=== PATIENT | female | born 1990 | race Caucasian/White ===

== ENCOUNTER 2018-01-15 20:50 | Inpatient (IN) ==
[2018-01-15] MEDS ORDERED: Sod Chloride 0.9% Inj 1,000 ML IV.CONT PRN (22:09)
[2018-01-15] MEDS ORDERED: Oxytocin 30 Units/500ml Premix 30 UNITS/500 ML BAG IV.SIG ONE (22:09)
[2018-01-15] MEDS ORDERED: fentaNYL Citrate Inj 100 MCG/2 ML Ampul IV.PUSH PRN ×2 (22:09)
[2018-01-15] MEDS ORDERED: Sodium Chlor 0.9% Inj 500 ML IV.SIG PRN (22:09)
[2018-01-15 22:12] LABS: Baso # (Auto) 0.1 th/mm3 (0.0-0.2); Baso % (Auto) 0.4 % (0.0-2.0); Eos % (Auto) 0.4 % (0.0-4.0); Hematocrit 37.7 % (35.0-46.0); Hemoglobin 12.8 gm/dL (11.6-15.3); Lymph # (Auto) 1.8 th/mm3 (1.0-4.8); Lymph % (Auto) 13.1 % (9.0-44.0); Mean Corpuscular Hemoglobin 28.4 pg (27.0-34.0); Mean Corpuscular Volume 83.3 fL (80.0-100.0); Mono # (Auto) 0.9 th/mm3 (0.0-0.9); Mono % (Auto) 6.7 % (0.0-8.0); Neut # (Auto) 10.8 th/mm3 (1.8-7.7); Neut % (Auto) 79.4 % (16.0-70.0); Platelet Count 204 th/mm3 (150-450); Red Blood Count 4.52 mil/mm3 (4.00-5.30); Red Cell Distribution Width 13.5 % (11.6-17.2); White Blood Count 13.6 th/mm3 (4.0-11.0)
[2018-01-15] MEDS ORDERED: Citric Acid/Sodium Citrate Liq 30 ML UDC PO SCH (22:15)
--- NOTE | 2018-01-15 22:18 | ED ---
History of Present Illness Primary Care Physician: No Primary Care Physician Chief Complaint: Contractions History of Present Illness: 27 year-old , IUP at 39.5 care complicated by anxiety The patient presents complaining of the onset of painful contractions after being discharged from here this morning. She reports that at 1 PM she was feeling painful contractions about every 10 minutes. She reports that they have subsequently increased in intensity and frequency to every 7-10 minutes and now every 5-7 minutes. There have been no alleviating factors or attempted treatments. She reports associated back pain. She denies any leaking of fluid or vaginal bleeding. 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 This includes certification that hospital inpatient services are reasonable and necessary and in the case of services not specified as inpatient-only under 42 CFR 419.22(n), that they are appropriately provided as inpatient services in accordance to with the 2-midnight benchmark under 43 CFR 412.3(e) Estimated Total Length of Stay (Days): 2 Plans for Post Hospital Care: Home Review of Systems All other systems reviewed negative except as stated in HPI [facility] - History History Provided By: Patient - Medical History Medical History: Medical History (Last Updated 10/26/17 @ 15:11 by Bettina Vines) Endometriosis - Surgical History Surgical History: Surgical History (Last Updated 10/26/17 @ 15:11 by Bettina Vines) H/O laparoscopy - Tobacco History Smoking Status: Never smoker - Alcohol History How Often Do You Have a Drink Containing Alcohol: Never (Not during ) - Substance Use History Substance History: No History of Abuse - Travel History History of Recent Travel: No Medications and Allergies Active Medications: Active Medications Citric Acid/Sodium Citrate (Sodium Citrate/Citric Acid Liq) 30 ml PO [facility] Stop: 01/19/18 22:14 Fentanyl Citrate (Fentanyl Inj) 50 mcg IV.PUSH Q1H PRN PRN Reason: Pain Scale 3 - 5 Fentanyl Citrate (Fentanyl Inj) 100 mcg IV.PUSH Q1H PRN PRN Reason: PAIN SCALE 6 TO 10 Lactated Ringer's (Lr 1000 Ml Inj) 1,000 mls @ 3,000 mls/hr IV.SIG UNSCH PRN PRN Reason: compromise or epidural Sodium Chloride (Ns Inj) 500 mls @ 1,000 mls/hr IV.SIG UNSCH PRN PRN Reason: SEE LABEL COMMENTS Sodium Chloride (Ns Inj) 1,000 mls @ 100 mls/hr IV.CONT .Q10H PRN PRN Reason: SEE LABEL COMMENTS Oxytocin (Pitocin 30 Units/Ns 500 Ml Premix) 30 units in 500 mls @ 999 mls/hr IV.SIG BOLUS ONE Stop: 01/15/18 22:39 Lactated Ringer's (Lr 1000 Ml Inj) 1,000 mls @ 125 mls/hr IV.CONT .Q8H BEATRICE Last Admin: 01/15/18 21:50 Dose: 500 mls/hr Lidocaine HCl (Xylocaine 1% Inj) 0.1 ml I-DERMAL PRN PRN PRN Reason: For IV start Stop: 01/18/18 22:08 Lidocaine HCl (Xylocaine 1% Inj) 10 ml INFILTRATN PRN PRN PRN Reason: For episiotomy repair Stop: 01/17/18 22:08 Mineral Oil (Muri-Lube Oil) 10 ml TOPICAL PRN PRN PRN Reason: PRN perineal massage Ondansetron HCl (Zofran Inj) 4 mg IV.PUSH Q6H PRN PRN Reason: NAUSEA OR VOMITING Allergies Allergy/AdvReac Type Severity Reaction Status Date / Time amoxicillin Allergy Rash Verified 10/09/17 11:55 Home Medications Medication Instructions Recorded Confirmed Type PNV cmb#95-ferrous fumarate-FA 1 tab PO DAILY 01/15/18 01/15/18 History [] Exam Vital signs: Vital Signs 01/15/18 21:09 01/15/18 21:10 01/15/18 22:11 Temperature 98.1 F Pulse Rate 84 89 Respiratory Rate 18 Blood Pressure 124/84 Intake & Output 01/15/18 01/15/18 01/16/18 06:59 18:59 06:59 Weight 155 kg Narrative: GENERAL: Well-nourished, well-developed patient. SKIN: Warm and dry. No rashes, lesions, masses noted HEAD: Normocephalic and atraumatic. EYES: No scleral icterus. No injection or drainage. ENT: No nasal drainage noted. Mucous membranes pink. Airway patent. NECK: Supple, trachea midline. No JVD. CARDIOVASCULAR: Regular rate and rhythm without murmurs, gallops, or rubs. RESPIRATORY: Breath sounds equal bilaterally. No accessory muscle use. BREASTS: deferred. ABDOMEN/GI: Abdomen soft, non-tender, bowel sounds present, no rebound, no guarding Gravid GENITOURINARY: Normal EGBUS, no cervical or vaginal masses noted, grossly normal rugae, physiologic discharge, SVE 4/70/-1 FHT's: heart tones are in the 130s with moderate long-term variability, good accelerations, no decelerations noted to react heart rate tracing EXTREMITIES: No cyanosis or edema. BACK: Nontender without obvious deformity. No CVA tenderness. NEUROLOGICAL/psychiatric: Awake and alert x3. Grossly normal memory/affect. Grossly normal range of motion. Cranial nerves II through XII grossly intact. Motor and sensory grossly within normal limits. Five out of 5 muscle strength in all muscle groups. Normal speech. Results - Labs CBC & Chem 7: 01/15/18 21:45 Labs: Laboratory Results - last 24 hr 01/15/18 21:45 WBC 13.6 H RBC 4.52 Hgb 12.8 Hct 37.7 MCV 83.3 MCH 28.4 MCHC 34.0 RDW 13.5 Plt Count 204 MPV 10.0 Neut % (Auto) 79.4 H Lymph % (Auto) 13.1 Douglas % (Auto) 6.7 Eos % (Auto) 0.4 Baso % (Auto) 0.4 Neut # (Auto) 10.8 H Lymph # (Auto) 1.8 Douglas # (Auto) 0.9 Eos # (Auto) 0.0 Baso # (Auto) 0.1 WBC Differential . Differential Comment Auto diff final Assessment and Plan - Plan Assessment/plan: 1. IUP at 39.5 2. Labor: Patient presented with cervical change and increase in intensity and frequency of her contractions. Discussed with Dr. Hood and patient will be admitted for early labor at term. Further augmentation and management as per Dr. Hood. Discussed risks of an , risks/indications of delivery 3. History of anxiety 4. well-being: Reassuring testing with reactive NST category 1 heart rate tracing. We will continue monitoring 5. GBS negative 6. History of endometriosis Discharge Plan - Discharge Condition Condition: Good - Physicians Team Primary Care Provider: Primary Care Fadia Dawson Attending Provider: Pepito Torrez
[2018-01-15] MEDS ORDERED: fentaNYL 2MCG-Bupiv 0.125% Epi 150 ML EPIDURAL ONE (22:19)
[2018-01-15] MEDS ORDERED: Lidocaine 2%/Epinephrine 1:200,000 PF 10 ML SDV ONE (22:22)
[2018-01-15 22:23] LABS: Bacteria,Urine Rare /hpf; Bilirubin,Urine Negative (Negative); Clarity,Urine Clear (Clear); Color,Urine Yellow (Yellw/Straw); Glucose,Urine (UA) Negative (Negative); Leukocyte Esterase,Urine Moderate (Negative); Mucus,Urine Few /lpf (Occasional); Nitrite,Urine Negative (Negative); Specific Gravity,Urine 1.009 (1.002-1.035); Squamous Epithelial Cell,Urine 7 /hpf (0-5)
[2018-01-15 22:26] LABS: Amphetamine Urine With Conf Neg (Neg); Benzodiazepine Urine With Conf Neg (Neg)
[2018-01-15] MEDS ORDERED: fentaNYL Citrate Inj 100 MCG/2 ML Ampul EPIDURAL ONE (22:55)
[2018-01-15] MEDS ORDERED: fentaNYL 2MCG-Bupiv 0.125% Epi 150 ML EPIDURAL PRN (22:55)
--- NOTE | 2018-01-15 23:27 | P.HPOB ---
History of Present Illness Primary Care Physician: No Primary Care Physician Chief Complaint: Contractions History of Present Illness: Patient Name: Madina Blandon Date of : 89 Patient Status: Inpatient Attending Provider: Pepito Torrez Date: 01/15/18 22:17 Initialization Date: 01/15/18 22:17 History of Present Illness Primary Care Physician: No Primary Care Physician Chief Complaint: Contractions History of Present Illness: 27 year-old , IUP at 39.5 care complicated by anxiety The patient presents complaining of the onset of painful contractions after being discharged from here this morning. She reports that at 1 PM she was feeling painful contractions about every 10 minutes. She reports that they have subsequently increased in intensity and frequency to every 7-10 minutes and now every 5-7 minutes. There have been no alleviating factors or attempted treatments. She reports associated back pain. She denies any leaking of fluid or vaginal bleeding. 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 This includes certification that hospital inpatient services are reasonable and necessary and in the case of services not specified as inpatient-only under 42 CFR 419.22(n), that they are appropriately provided as inpatient services in accordance to with the 2-midnight benchmark under 43 CFR 412.3(e) Estimated Total Length of Stay (Days): 2 Plans for Post Hospital Care: Home Review of Systems All other systems reviewed negative except as stated in HPI Narrative: GENERAL: Well-nourished, well-developed patient. SKIN: Warm and dry. No rashes, lesions, masses noted HEAD: Normocephalic and atraumatic. EYES: No scleral icterus. No injection or drainage. ENT: No nasal drainage noted. Mucous membranes pink. Airway patent. NECK: Supple, trachea midline. No JVD. CARDIOVASCULAR: Regular rate and rhythm without murmurs, gallops, or rubs. RESPIRATORY: Breath sounds equal bilaterally. No accessory muscle use. BREASTS: deferred. ABDOMEN/GI: Abdomen soft, non-tender, bowel sounds present, no rebound, no guarding Gravid GENITOURINARY: Normal EGBUS, no cervical or vaginal masses noted, grossly normal rugae, physiologic discharge, SVE 4/70/-1 FHT's: heart tones are in the 130s with moderate long-term variability, good accelerations, no decelerations noted to react heart rate tracing EXTREMITIES: No cyanosis or edema. BACK: Nontender without obvious deformity. No CVA tenderness. NEUROLOGICAL/psychiatric: Awake and alert x3. Grossly normal memory/affect. Grossly normal range of motion. Cranial nerves II through XII grossly intact. Motor and sensory grossly within normal limits. Five out of 5 muscle strength in all muscle groups. Normal speech. - Assessment and Plan Assessment/plan: 1. IUP at 39.5 2. Labor: Patient presented with cervical change and increase in intensity and frequency of her contractions. Discussed with Dr. Hood and patient will be admitted for early labor at term. Further augmentation and management as per Dr. Hood. Discussed risks of an , risks/indications of delivery 3. History of anxiety 4. well-being: Reassuring testing with reactive NST category 1 heart rate tracing. We will continue monitoring 5. GBS negative 6. History of endometriosis Discharge Plan - Discharge Condition Condition: Good - Physicians Team Primary Care Provider: Primary Care Fadia Dawson Attending Provider: Pepito Torrez - Inpatient Certification I certify that the inpatient services were ordered in accordance with Medicare regulations governing the order. This includes certification that hospital inpatient services are reasonable and necessary and in the case of services not specified as inpatient-only under 42 CFR 419.22(n), that they are appropriately provided as inpatient services in accordance to with the 2-midnight benchmark under 43 CFR 412.3(e) Estimated Total Length of Stay (Days): 2 Plans for Post Hospital Care: Home [facility] - History History Provided By: Patient - Medical History Medical History: Medical History (Last Updated 10/26/17 @ 15:11 by Bettina Vines) Endometriosis - Surgical History Surgical History: Surgical History (Last Updated 10/26/17 @ 15:11 by Bettina Vines) H/O laparoscopy - Tobacco History Smoking Status: Never smoker - Alcohol History How Often Do You Have a Drink Containing Alcohol: Never (Not during ) - Substance Use History Substance History: No History of Abuse - Travel History History of Recent Travel: No Medications and Allergies Active Medications: Active Medications Citric Acid/Sodium Citrate (Sodium Citrate/Citric Acid Liq) 30 ml PO [facility] Stop: 01/19/18 22:14 Ephedrine Sulfate (Ephedrine/Ns Syringe) 10 mg IV.PUSH UNSCH PRN PRN Reason: SEE LABEL COMMENTS Stop: 01/16/18 22:55 Fentanyl Citrate (Fentanyl Inj) 50 mcg IV.PUSH Q1H PRN PRN Reason: Pain Scale 3 - 5 Fentanyl Citrate (Fentanyl Inj) 100 mcg IV.PUSH Q1H PRN PRN Reason: PAIN SCALE 6 TO 10 Lactated Ringer's (Lr 1000 Ml Inj) 1,000 mls @ 3,000 mls/hr IV.SIG UNSCH PRN PRN Reason: compromise or epidural Sodium Chloride (Ns Inj) 500 mls @ 1,000 mls/hr IV.SIG UNSCH PRN PRN Reason: SEE LABEL COMMENTS Sodium Chloride (Ns Inj) 1,000 mls @ 100 mls/hr IV.CONT .Q10H PRN PRN Reason: SEE LABEL COMMENTS Lactated Ringer's (Lr 1000 Ml Inj) 1,000 mls @ 125 mls/hr IV.CONT .Q8H [facility] Last Admin: 01/15/18 22:50 Dose: 125 mls/hr Fentanyl/Bupivacaine/Sodium Chlor (Fentanyl 2 Mcg-Bupiv 0.125% Epi) 150 mls @ 12 mls/hr EPIDURAL PRN PRN PRN Reason: for Labor Pain Last Admin: 01/15/18 23:25 Dose: 12 mls/hr Lidocaine HCl (Xylocaine 1% Inj) 0.1 ml I-DERMAL PRN PRN PRN Reason: For IV start Stop: 01/18/18 22:08 Lidocaine HCl (Xylocaine 1% Inj) 10 ml INFILTRATN PRN PRN PRN Reason: For episiotomy repair Stop: 01/17/18 22:08 Mineral Oil (Muri-Lube Oil) 10 ml TOPICAL PRN PRN PRN Reason: PRN perineal massage Miscellaneous Information (Misc Information) 1 each OTHER UNSCH PRN PRN Reason: SEE LABEL COMMENTS Stop: 01/16/18 22:55 Miscellaneous Information (Misc Information) 1 each OTHER UNSCH PRN PRN Reason: SEE LABEL COMMENTS Stop: 01/16/18 22:55 Ondansetron HCl (Zofran Inj) 4 mg IV.PUSH Q6H PRN PRN Reason: NAUSEA OR VOMITING Allergies Allergy/AdvReac Type Severity Reaction Status Date / Time amoxicillin Allergy Rash Verified 10/09/17 11:55 Home Medications Medication Instructions Recorded Confirmed Type PNV cmb#95-ferrous fumarate-FA 1 tab PO DAILY 01/15/18 01/15/18 History [] Exam Vital signs: Vital Signs 01/15/18 21:09 01/15/18 21:10 01/15/18 22:11 Temperature 98.1 F Pulse Rate 84 89 Respiratory Rate 18 Blood Pressure 124/84 01/15/18 22:39 01/15/18 23:00 01/15/18 23:03 Temperature 98.0 F Pulse Rate 70 110 H 90 Respiratory Rate 18 18 18 Blood Pressure 130/110 H 121/69 Intake & Output 01/15/18 01/15/18 01/16/18 06:59 18:59 06:59 Intake Total 1000 / 1000 Balance 1000 / 1000 Weight 155 kg Intake: IV 1000 / 1000 LR 1000 mL Inj 1,000 ML @ 125 1000 / 1000 mls/hr IV.CONT .Q8H [facility] Rx#: [id number] Results - Labs CBC & Chem 7: 01/15/18 21:45 Labs: Laboratory Results - last 24 hr 01/15/18 01/15/18 01/15/18 21:09 21:09 21:45 WBC 13.6 H RBC 4.52 Hgb 12.8 Hct 37.7 MCV 83.3 MCH 28.4 MCHC 34.0 RDW 13.5 Plt Count 204 MPV 10.0 Neut % (Auto) 79.4 H Lymph % (Auto) 13.1 Rankin % (Auto) 6.7 Eos % (Auto) 0.4 Baso % (Auto) 0.4 Neut # (Auto) 10.8 H Lymph # (Auto) 1.8 Rankin # (Auto) 0.9 Eos # (Auto) 0.0 Baso # (Auto) 0.1 WBC Differential . Differential Comment Auto diff final Urine Color Yellow Urine Clarity Clear Urine pH 6.0 Ur Specific [place] 1.009 Urine Protein Negative Urine Glucose (UA) Negative Urine Ketones Trace H Urine Occult Blood Negative Urine Nitrate Negative Urine Bilirubin Negative Urine Urobilinogen Less than 2 Ur Leukocyte Esterase Moderate H Urine RBC Less than 1 Urine WBC 3 Ur Squamous Epith Cells 7 Urine Bacteria Rare H Urine Mucus Few H Micro UA Comment Culture not ind Ur Microscopic Review Not Reportable Urine Culture Comments Culture not ind Urine Opiates Screen Neg Ur Barbiturates Screen Neg Ur Amphetamine Screen Neg U Benzodiazepines Scrn Neg Urine Cocaine Screen Neg U Cannabinoids Screen Pos H Blood Type Blood Type Recheck 01/15/18 21:45 WBC RBC Hgb Hct MCV MCH MCHC RDW Plt Count MPV Neut % (Auto) Lymph % (Auto) Rankin % (Auto) Eos % (Auto) Baso % (Auto) Neut # (Auto) Lymph # (Auto) Rankin # (Auto) Eos # (Auto) Baso # (Auto) WBC Differential Differential Comment Urine Color Urine Clarity Urine pH Ur Specific [place] Urine Protein Urine Glucose (UA) Urine Ketones Urine Occult Blood Urine Nitrate Urine Bilirubin Urine Urobilinogen Ur Leukocyte Esterase Urine RBC Urine WBC Ur Squamous Epith Cells Urine Bacteria Urine Mucus Micro UA Comment Ur Microscopic Review Urine Culture Comments Urine Opiates Screen Ur Barbiturates Screen Ur Amphetamine Screen U Benzodiazepines Scrn Urine Cocaine Screen U Cannabinoids Screen Blood Type O Positive Blood Type Recheck Required Caprini VTE Risk Assessment Caprini VTE Risk Assessment: No/Low Risk (score <= 1) Caprini Risk Assessment Model: Point Value = 1 Point Value = 2 Point Value = 3 Point Value = 5 Age 41-60 Minor surgery BMI > 25 kg/m2 Swollen legs Varicose veins or History of unexplained or recurrent spontaneous Oral contraceptives or hormone replacement Sepsis (< 1 month) Serious lung disease, including pneumonia (< 1 month) Abnormal pulmonary function Acute myocardial infarction Congestive heart failure (< 1 month) History of inflammatory bowel disease Medical patient at bed rest Age 61-74 Arthroscopic surgery Major open surgery (> 45 min) Laparoscopic surgery (> 45 min) Malignancy Confined to bed (> 72 hours) Immobilizing plaster cast Central venous access Age >= 75 History of VTE Family history of VTE Factor V Leiden Prothrombin [id number] Lupus anticoagulant Anticardiolipin antibodies Elevated serum homocysteine Heparin-induced thrombocytopenia Other congenital or acquired thrombophilia Stroke (< 1 month) Elective arthroplasty Hip, pelvis, or leg fracture Acute spinal cord injury (< 1 month) Prophylaxis Regimen: Total Risk Factor Score Risk Level Prophylaxis Regimen 0-1 Low Early ambulation 2 Moderate Order ONE of the following: *Sequential Compression Device (SCD) *Heparin 5000 units SQ BID 3-4 Higher Order ONE of the following medications: *Heparin 5000 units SQ TID *Enoxaparin/Lovenox 40 mg SQ daily (WT < 150 kg, CrCl > 30 mL/min) *Enoxaparin/Lovenox 30 mg SQ daily (WT < 150 kg, CrCl > 10-29 mL/min) *Enoxaparin/Lovenox 30 mg SQ BID (WT < 150 kg, CrCl > 30 mL/min) AND/OR *Sequential Compression Device (SCD) 5 or more Highest Order ONE of the following medications: *Heparin 5000 units SQ TID (Preferred with Epidurals) *Enoxaparin/Lovenox 40 mg SQ daily (WT < 150 kg, CrCl > 30 mL/min) *Enoxaparin/Lovenox 30 mg SQ daily (WT < 150 kg, CrCl > 10-29 mL/min) *Enoxaparin/Lovenox 30 mg SQ BID (WT < 150 kg, CrCl > 30 mL/min) AND *Sequential Compression Device (SCD)
[2018-01-16] MEDS ORDERED: Lidocaine 1% Inj 50 ML Vial ONE (00:04)
[2018-01-16] MEDS ORDERED: Bisacodyl 10 MG Supp RECTAL PRN (04:34)
[2018-01-16] MEDS ORDERED: Acetaminophen 325 MG Tablet PO PRN (04:34)
[2018-01-16] MEDS ORDERED: Naloxone Inj 0.4 MG/ML Vial IV.PUSH PRN (04:34)
[2018-01-16] MEDS ORDERED: Zolpidem Tartrate 5 MG Tablet PO PRN (04:34)
[2018-01-16] MEDS ORDERED: Benzocaine 20% Top Spray 60 ML Can TOPICAL PRN (04:34)
[2018-01-16] MEDS ORDERED: Oxytocin 30 Units/500ml Premix 30 UNITS/500 ML BAG IV.CONT PRN (04:34)
[2018-01-16] MEDS ORDERED: Witch Hazel 50%/Glyderin 12.5% 40 Pad Jar RECTAL PRN (04:34)
--- NOTE | 2018-01-16 04:38 | P.OBDELI ---
Weeks Gestation: 39 Patient Started Active Labor: Yes Active Labor Start Date: 01/15/18 Medical Induction of Labor: No Artificial Rupture of Membrane: No Anesthesia: Epidural Episiotomy: none Vaginal Delivery: Normal Presentation: Occiput anterior Nuchal Cord: None Delayed Cord Clamping (45 sec): Yes Placenta: Spontaneous delivery, Intact, 3 vessel cord Laceration: None Infant: Female Infant Female A Delivery Date: 01/16/18 Weight: 3.232 kg score (1 min): 9 score (5 min): 9 Additional Information: nice delivery of Beth[place]. Beautiful delivery No lacerations EBL is 300cc
[2018-01-16] MEDS ORDERED: Prenatal Vit/Ca/Iron/Folic Acid Tablet PO SCH (09:00)
[2018-01-16] MEDS: Senna/Docusate Sodium 8.6/50 MG Tablet PO SCH ×2 (09:33→22:03)
[2018-01-16] MEDS ORDERED: Diphtheria/Tetanus/Pertussis Vaccine Inj 0.5 ML Syringe IM ONE (16:00)
[2018-01-16] MEDS ORDERED: Measles/Mumps/Rubella Vaccine Inj 0.5 ML Vial SQ ONE (16:00)
--- NOTE | 2018-01-17 09:30 | P.PNOB ---
Subjective Post day: 1 Objective Vital Signs/I&O: Vital Signs 01/16/18 20:00 Temperature 97.4 F L Pulse Rate 65 Respiratory Rate 18 Blood Pressure 113/68 Result Diagrams: 01/15/18 21:45 Objective Remarks: GENERAL: Well-nourished, well-developed patient. CARDIOVASCULAR: Regular rate and rhythm without murmurs, gallops, or rubs. RESPIRATORY: Breath sounds equal bilaterally. No accessory muscle use. ABDOMEN/GI: Abdomen soft, non-tender. Fundus: Firm, non-tender at umbilicus. GENITOURINARY: Light to moderate bleeding. EXTREMITIES: No cyanosis or edema, non-tender, without signs of DVT. Medications and IVs: Active Medications Acetaminophen (Tylenol) 650 mg PO Q4H PRN PRN Reason: PAIN SCALE 1 TO 2 Hydrocodone Bitart/Acetaminophen ([place] 5/325) 1 tab PO Q6H PRN PRN Reason: PAIN SCALE 6 TO 10 Last Admin: 01/17/18 07:25 Dose: 1 tab Al Hydroxide/Mg Hydroxide (Milk Of Magnesia Liq) 30 ml PO Q12H PRN PRN Reason: Mild Constipation Benzocaine (Americaine 20% [place]) 1 spray TOPICAL Q4H PRN PRN Reason: For Perineum Discomfort Bisacodyl (Dulcolax Supp) 10 mg RECTAL DAILY PRN PRN Reason: SEVERE CONSITIPATION Oxytocin (Pitocin 30 Units/Ns 500 Ml Premix) 30 units in 500 mls @ 100 mls/hr IV.CONT UNSCH PRN PRN Reason: Heavy bleeding Ibuprofen (Motrin) 800 mg PO Q8H PRN PRN Reason: For Cramping Last Admin: 01/17/18 00:31 Dose: 800 mg Lactulose (Lactulose Liq) 30 ml PO DAILY PRN PRN Reason: SEVERE CONSITIPATION Naloxone HCl (Narcan Inj) 0.1 mg IV.PUSH Q2M PRN PRN Reason: for opiate reversal Ondansetron HCl (Zofran Odt) 4 mg PO Q6H PRN PRN Reason: NAUSEA OR VOMITING Vit/Calcium/Iron/Folic Ac (Stuartnatal Plus 3) 1 tab PO DAILY [facility]ATRICE Last Admin: 01/16/18 09:33 Dose: 1 tab Senna/Docusate Sodium (Romana-Colace) 1 tab PO BID BEATRICE Last Admin: 01/16/18 22:03 Dose: 1 tab Sennosides (Senokot) 17.2 mg PO Q12H PRN PRN Reason: Moderate Constipation Sodium Chloride (Ns Flush) 2 ml IV.FLUSH BID [facility] Last Admin: 01/16/18 23:19 Dose: Not Given Sodium Chloride (Ns Flush) 2 ml IV.FLUSH PRN PRN PRN Reason: FLUSH AFTER USING IV ACCESS Witch Britney/Glycerin (Tucks Pads) 1 applicatio RECTAL QID PRN PRN Reason: HEMORRHOIDS Zolpidem Tartrate (Ambien) 5 mg PO HS PRN PRN Reason: SLEEP Assessment and Plan - Plan POD 1 pt doing well feels bleeding was heavy yesterday but has improved pain well managed with oral pain medication breast and bottle feeding bonding with infant routine Discharge Planning: dc home tomorrow
[2018-01-17 09:35] VITALS: BP 118/74; PULSE 67; RESP 20; TEMP 97.6
--- NOTE | 2018-01-17 15:04 | P.DS ---
Date of admission: 01/15/18 21:53 Primary care physician: No Primary Care Physician Attending physician on discharge: Pepito Torrez Anticipated date of discharge: 01/17/18 Brief History from admission: Patient Name: Madina Blandon Date of : 89 Patient Status: Inpatient Attending Provider: Pepito Torrez Date: 01/15/18 22:17 Initialization Date: 01/15/18 22:17 History of Present Illness Primary Care Physician: No Primary Care Physician Chief Complaint: Contractions History of Present Illness: 27 year-old , IUP at 39.5 care complicated by anxiety The patient presents complaining of the onset of painful contractions after being discharged from here this morning. She reports that at 1 PM she was feeling painful contractions about every 10 minutes. She reports that they have subsequently increased in intensity and frequency to every 7-10 minutes and now every 5-7 minutes. There have been no alleviating factors or attempted treatments. She reports associated back pain. She denies any leaking of fluid or vaginal bleeding. 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 This includes certification that hospital inpatient services are reasonable and necessary and in the case of services not specified as inpatient-only under 42 CFR 419.22(n), that they are appropriately provided as inpatient services in accordance to with the 2-midnight benchmark under 43 CFR 412.3(e) Estimated Total Length of Stay (Days): 2 Plans for Post Hospital Care: Home Review of Systems All other systems reviewed negative except as stated in HPI Narrative: GENERAL: Well-nourished, well-developed patient. SKIN: Warm and dry. No rashes, lesions, masses noted HEAD: Normocephalic and atraumatic. EYES: No scleral icterus. No injection or drainage. ENT: No nasal drainage noted. Mucous membranes pink. Airway patent. NECK: Supple, trachea midline. No JVD. CARDIOVASCULAR: Regular rate and rhythm without murmurs, gallops, or rubs. RESPIRATORY: Breath sounds equal bilaterally. No accessory muscle use. BREASTS: deferred. ABDOMEN/GI: Abdomen soft, non-tender, bowel sounds present, no rebound, no guarding Gravid GENITOURINARY: Normal EGBUS, no cervical or vaginal masses noted, grossly normal rugae, physiologic discharge, SVE 4/70/-1 FHT's: heart tones are in the 130s with moderate long-term variability, good accelerations, no decelerations noted to react heart rate tracing EXTREMITIES: No cyanosis or edema. BACK: Nontender without obvious deformity. No CVA tenderness. NEUROLOGICAL/psychiatric: Awake and alert x3. Grossly normal memory/affect. Grossly normal range of motion. Cranial nerves II through XII grossly intact. Motor and sensory grossly within normal limits. Five out of 5 muscle strength in all muscle groups. Normal speech. - Assessment and Plan Assessment/plan: 1. IUP at 39.5 2. Labor: Patient presented with cervical change and increase in intensity and frequency of her contractions. Discussed with Dr. Hood and patient will be admitted for early labor at term. Further augmentation and management as per Dr. Hood. Discussed risks of an , risks/indications of delivery 3. History of anxiety 4. well-being: Reassuring testing with reactive NST category 1 heart rate tracing. We will continue monitoring 5. GBS negative 6. History of endometriosis Discharge Plan - Discharge Condition Condition: Good - Physicians Team Primary Care Provider: Primary Care Eunice,Fadia Attending Provider: Pepito Torrez DS: Diagnosis - Discharge Diagnosis (1) (normal spontaneous vaginal delivery) Status: Acute DS: Medications - Discharge Medications Prescriptions: hydrocodone-acetaminophen 1 tab PO Q6H PRN #10 tab PRN Reason: moderate pain ibuprofen 800 mg PO Q8H PRN #30 tab PRN Reason: For Cramping DS: Summary Hospital Course: term admitted for labor routine care - Time Spent with Patient Total time spent providing and/or coordinating discharge services: Less than 30 minutes Exam Vital signs: Vital Signs 01/16/18 20:00 01/17/18 08:00 Temperature 97.4 F L 97.6 F Pulse Rate 65 67 Respiratory Rate 18 20 Blood Pressure 113/68 118/74 Narrative: see post exam Results Procedures completed during hospitalization: Discharge Plan - Discharge Disposition Patient Disposition: 01 Discharge Home - Discharge Condition Condition: Good - Discharge Order Discharge Orders: Discharge Order (Routine); Ordered 01/17/18 Ordered By: Lyndsay Tai - Discharge Details Anticipated Discharge Date: 01/17/18 - Physicians Team Primary Care Provider: Primary Care Fadia Dawson Attending Provider: Pepito Torrez
== END 2018-01-17 14:02 | disposition home or self-care (01) ==
LOC: HOBED 20:50 → H2E 21:50 → H1EA 01-16 06:30
PROVIDERS: ADMIT Obstetrics & Gynecology; ATTEND Obstetrics & Gynecology